=== PATIENT | female | born 1955 | race Caucasian/White ===

== ENCOUNTER 2016-08-30 14:55 | Inpatient (IN) | payer OTHER ==
[~2016-08-30] VITALS: Ht 154.9 cm; Wt 116.3 kg
[2016-09-01] MEDS ORDERED: ACIPHEX20 MG PO (12:25)
[2016-09-01] MEDS ORDERED: REQUIP1 MG PO (12:25)
[2016-09-01] MEDS ORDERED: MONTELUKAST SOD10 MG PO (12:25)
[2016-09-01] MEDS ORDERED: TYLENOL DPS325 MG PO (12:26)
[2016-09-01] MEDS ORDERED: MILK OF MAGNESI10 ML PO (12:26)
[2016-09-01] MEDS ORDERED: CIPRO DPS500 MG PO (12:26)
[2016-09-01] MEDS ORDERED: COLACE-DPS100 MG PO (12:26)
[2016-09-01] MEDS ORDERED: FLAGYL-DPS500 MG PO (12:26)
--- NOTE | 2016-09-05 16:06 | DS ---
ADMIT: 08/30/2016 RM/LOC: 426 [facility] MR#: [id number] [id number] [place], [place] [address] [address] [place] [address] General Discharge Summary SEX: F AGE: 61 : 1955 ADMISSION DATE: 08/30/2016 DISCHARGE DATE: 09/01/2016 FINAL DIAGNOSIS: Acute sigmoid diverticulitis. BRIEF NARRATIVE: This patient was admitted to Acute Care by Dr. Sin, resident physician, under my supervision with left lower quadrant abdominal pain, diarrhea, and fever with CT scan findings confirmed a sigmoid diverticulitis with a micro perforation. She had been having symptoms for about 3 days prior to admission. For details of past medical history, see the history and physical examination by Dr. Sin in the chart. Examination revealed the following vital signs: 136/44-50-63-100.2-95% sat. Cardiorespiratory exam was unremarkable. Tender to palpation in left lower quadrant, otherwise soft. No rebound tenderness. Normal bowel sounds. White count 20,400, hemoglobin 14.6, platelets 182,000. Electrolytes unremarkable. Creatinine 0.78. The patient was admitted to Acute Care. Surgical consultation was obtained with Dr. Sylvester, who did make some changes in her IV antibiotic choices but just recommend IV antibiotic therapy. Her main treatment is IV Unasyn. Over the next 48 hours, her vital signs remained stable and her abdominal pain resolved and she was felt stable for dismissal with further outpatient management on oral medications with office followup with her primary, Dr. Dominique. DISCHARGE MEDICATIONS: 1. Flagyl 500 mg t.i.d. 2. Cipro 500 mg b.i.d. for the current condition plus preadmitting medications. 3. Ropinirole 1 mg at bedtime. 4. Singulair 10 mg daily. 5. AcipHex 20 mg daily. 6. Colace 100 mg b.i.d. Luciano Pappas MD/ da JOB #: [id number] CC: Luciano Pappas MD, Attending Physician Royal Dominique MD, Family Physician
--- NOTE | 2016-09-10 07:27 | HP ---
ADMIT: 08/30/2016 RM/LOC: 426 [facility] MR#: [id number] [address] [address] [address] [place] [address] History and Physical SEX: F AGE: 61 : 1955 DATE OF SERVICE: CHIEF COMPLAINT: Abdominal pain. HISTORY OF PRESENT ILLNESS: This is a 61-year-old female, who presented to clinic today with a 3-day history of abdominal pain, diarrhea, fever, and bloating. She states that on early Friday morning, she woke up with severe abdominal pain and had approximately 5 loose stools that day. She did not note any blood or pus in her stools. She had been trying some new diet supplements to help her lose weight and thought perhaps that the diarrhea was caused by those new [id number] medications. On , the abdominal pain and cramping continued as did the fevers. She did have one loose stool on and again did not note any blood or pus in her stools. She did not eat much on and thought that her symptoms were getting better, but night decided to try some pizza. She was up all night, night, with severe abdominal cramping and low-grade fever. She does feel that her abdominal pain and cramping gets better with a bowel movement. She also has been passing gas and feels better when she does this as well. She had a colonoscopy back in April of 2016 that showed some sigmoid diverticula, but no polyps. PAST MEDICAL HISTORY: 1. Hypertension. 2. Allergic rhinitis. 3. Obesity. 4. Obstructive sleep apnea. 5. Restless legs syndrome. PAST SURGICAL HISTORY: 1. Appendectomy. 2. Left knee scope. 3. Tubal repair. ALLERGIES: 1. MORPHINE. 2. SULFA. MEDICATIONS: 1. Ropinirole 1 mg at bedtime. 2. AcipHex 20 mg daily as needed. 3. Singulair 10 mg daily as needed. FAMILY HISTORY: Noncontributory. 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 building. She denies any tobacco, alcohol, or illegal drug use. REVIEW OF SYSTEMS: A 10-point review of systems was reviewed and negative ADMIT: 08/30/2016 RM/LOC: [address] [facility] MR#: [id number] [address] [address] [address] [address] History and Physical SEX: F AGE: 61 : 1955 other than that stated above in the HPI. PHYSICAL EXAMINATION: VITAL SIGNS: Blood pressure 136/80, pulse 99, respirations 16, temp 100.2, saturating 95% on room air. GENERAL: She is alert, oriented x3. No acute distress. HEART: Regular rate and rhythm. No murmur. LUNGS: Clear. ABDOMEN: She does have tenderness to palpation of the left lower quadrant. Her belly is soft. There is no rebound tenderness. She does have positive bowel sounds. EXTREMITIES: No edema. LABORATORY DATA: Clinic labs showed a white count of 20.4, hemoglobin of 14.6 and a platelet count of 182. Sodium 138, potassium 4.1, creatinine 0.78. CT of the abdomen and pelvis per radiology's read showed sigmoid diverticulitis with possible microperforation. ASSESSMENT AND PLAN: Sigmoid diverticulitis with microperforation. Surgery has been consulted and started her on Unasyn. She is on a clear liquid diet, may advance that as tolerated. She has Tylenol for pain control. She is allergic to morphine, but if her pain progresses, she can have a Dilaudid BACK MAKER. We will continue her home medications for her other medical issues. Sue Sin DO Resident / Royal Dominique MD / da JOB #: [id number] CC: Luciano Pappas, Attending Physician Royal Dominique, Family Physician
--- NOTE | 2016-10-02 10:44 | CO ---
ADMIT: 08/30/2016 RM/LOC: 426 [facility] MR#: [id number] [address] [address] [address] [place] [address] Consultation SEX: F AGE: 61 : 1955 DATE OF CONSULTATION: 08/30/2016 ATTENDING PHYSICIAN: Luciano Pappas CONSULTING PHYSICIAN: Luis E Sylvester MD CHIEF COMPLAINT: Left lower quadrant abdominal pain, fevers, and diverticulitis. HISTORY OF PRESENT ILLNESS: This is a 61-year-old female patient of Dr. Pappas, Dr. Dominique, and also Dr. Sue Sin. This patient has been feeling just not so great or kind of ill for last couple of days. It started late Friday or early Friday, she started not feeling well. She has had some pressure type sensation in her pelvis and lower abdomen, difficulty passing bowel movements and a little bit left lower quadrant pain also. She had a colonoscopy done by Dr. Camilo back in January 2016 which per report showed some diverticula, but otherwise looked fine. The patient had some blood work done at the [facility] and showed to have an elevated white blood cell count of 20.4 with a left shift. So, she was sent over for a CT scan, which does show acute diverticulitis and maybe a small microperforation just with dot of air outside the bowel loops. Little difficult to tell whether that area is intraluminal or extraluminal. There was no free fluid. No obvious large volume free air. So, the patient was admitted for IV fluids, antibiotics, and I was asked to see her in surgical consultation. She actually feels pretty decent at this time and does not have a whole lot of pain. She is somewhat nauseated. Just basically talked about having some pressure basically in her lower abdomen. She does not really feel hungry at this time. PAST MEDICAL HISTORY: Illnesses include obesity and reflux. CURRENT MEDICATIONS: 1. Acidophilus. 2. AcipHex. 3. Apple cider vinegar tablet. 4. Chromium. 5. Ibuprofen. 6. Mucinex. 7. Ropinirole. 8. Singulair. 9. Tylenol. ALLERGIES: MORPHINE AND SULFA. PREVIOUS SURGERIES: She has had multiple surgeries in her pelvis for adhesions in attempt to get . She also had some tubal pregnancies and required surgery. She has also had a perforated appendicitis as a child. Again the colonoscopy done in January by Dr. Camilo. ADMIT: 08/30/2016 RM/LOC: [address] [facility] MR#: [id number] [address] [address] [facility] [place] [address] Consultation SEX: F AGE: 61 : 1955 SOCIAL HISTORY: She is a former smoker but having quit in 1990. Denies any alcohol use currently. FAMILY HISTORY: Noncontributory. REVIEW OF SYSTEMS: A 10-point review of systems is essentially negative with the exception of her current left lower quadrant abdominal discomfort or pain, nausea. No vomiting. Pressure in her pelvis. Decreased bowel movements and also the fevers that she had. PHYSICAL EXAMINATION: GENERAL: She is alert. She is oriented. Currently, in no acute distress. VITAL SIGNS: Currently stable. HEENT: Normal. No adenopathy. No thyroid masses. LUNGS: Clear bilaterally. HEART: Regular without murmurs. ABDOMEN: Obese. It is soft and nondistended. She does have just some mild tenderness in the left lower quadrant. No guarding or rebound is noted. No hernias are noted. EXTREMITIES: Warm and pink without edema. CT scan of the abdomen and pelvis does reveal diverticulitis, mainly of the section of her sigmoid colon down into the pelvis. There is question of a small microperforation with a dot of air that may or may not be intraluminal. There is no free fluid. No abscess noted. ASSESSMENT: Acute diverticulitis. PLAN: I do agree with admitting her for IV fluids, antibiotics. Dr. Sin had ordered Ancef and Flagyl. I think I would probably try something more along the lines of the Unasyn just because want to try to be aggressive with her antibiotics in an attempt to get this to heal up because she would be a difficult surgery given her abdominal size. So we will switch that around. I will let her have full liquids, but I told her to go sparingly with her diet. We will try to get her up and moving. She understands all this and agrees with this plan. Luis E Sylvester MD/ da JOB #: [id number] CC: Luciano Pappas, Attending Physician Royal Dominique, Family Physician
== END 2016-09-01 10:10 | disposition home or self-care (01) | DRG 392 ==
LOC: RAD.S 14:55 → 4PCU 16:00
PROVIDERS: ADMIT Family Medicine
DX: K57.20 Diverticulitis of large intestine with perforation and abscess without bleeding (principal); Z68.42 Body mass index [BMI] 45.0-49.9, adult; I10 Essential (primary) hypertension; J30.9 Allergic rhinitis, unspecified; E66.9 Obesity, unspecified; K59.09 Other constipation; G47.33 Obstructive sleep apnea (adult) (pediatric); G25.81 Restless legs syndrome; K21.9 Gastro-esophageal reflux disease without esophagitis; Z87.891 Personal history of nicotine dependence